=== PATIENT | male | born 1970 | race Two or more races ===

== ENCOUNTER 2024-11-24 08:21 | Day surgery (SDC) | payer OTHER, MEDICAID ==
[2024-11-24] VITALS (8 sets, daily range): BP systolic 97–131; BP diastolic 63–90; PULSE 70–81; RESP 13–16; O2SAT 92–95
[~2024-11-24] VITALS: Ht 167.6 cm; Wt 103.9 kg
[~2024-11-24 08:21] MED LIST: ASPI1TAB20 PO; BUDE1AER4 IN; CHOL400C15 PO; DULA0.5I SC; EMPA1TAB3 PO; EZET10TA22 PO; FAMO-12 PO; FURO1TAB31 PO; INSU100I4 SC; INSU100I70 SC; LOSA-534 PO; METO-159 PO; OMEP20TA PO; ROSU20TA14 PO; TRIA37.586 PO
[2024-11-24] MEDS ORDERED: HEPARIN SODIUM (PORCINE) 5000 UNITS/ML 1ML VIAL ONE ×2 (08:56→12:09)
[2024-11-24] MEDS ORDERED: ANGIOMAX 250 MG VIAL IV ONE (08:56)
[2024-11-24] MEDS ORDERED: methylPREDNISolone SOD SUCC 125 MG/2 ML VL ONE (08:56)
[2024-11-24] MEDS ORDERED: VERAPAMIL 2.5MG/ML INJ 2ML VIAL IV ONE (08:57)
[2024-11-24] MEDS ORDERED: diphenhdrAMINE HCL 50 MG/1 ML VL ONE (08:57)
[2024-11-24] MEDS ORDERED: fentaNYL CITRATE 100 MCG/2 ML VL ONE (08:58)
[2024-11-24] MEDS ORDERED: FAMOTIDINE (10MG/ML) 2ML VL IV ONE (08:58)
[2024-11-24] MEDS ORDERED: LIDOCAINE 2%HCL (LOCAL ANESTH.) INJ 20ML MDV ONE (08:58)
[2024-11-24] MEDS ORDERED: MIDAZOLAM HCL 2MG/2ML 2ml VIAL (1mg/ml) ONE (08:58)
[2024-11-24] MEDS ORDERED: IODIXANOL 320MG/ML 100ML BTL IV ONE ×2 (08:58→12:05)
--- NOTE | 2024-11-24 12:29 | DVHOP2 ---
Operative Report - 2 Report Details Date: 11/24/24 Preop Diagnosis: Cardiomyopathy. CAD. Postop Diagnosis: Mild cardiomyopathy. No CAD. Surgeon: Shaka Mckeon MD Anesthesiologist: Conscious sedation. Anesthesia: Mac, Local (Two of Versed and 50 of fentanyl were given by attending nurse. I supervised the patient throughout the procedure and through the administration of conscious sedation.) Consent: The patient was informed of the risks and benefits of the procedure. These include but are not limited to complications of anesthesia, postoperative infection, incomplete relief of symptoms, recurrence of symptoms, damage to blood vessels, nerves and tendons, deep venous thrombosis, pulmonary embolism and possible need for repeat surgery in the future. Complications: No complications. Estimated Blood Loss: 5 cc. Findings: No CAD. Mild myopathy. Indications for Surgery: Chest pain. Name of Procedure Performed Bilateral cine coronary angiography left ventriculography. Procedure Details Procedure Details: Prior local anesthesia with 2% lidocaine to the right wrist full informed consent obtained patient was prepped and draped in usual fashion followed by placement of a Roney catheter the right and left coronary ostia and also for ventriculography patient tolerated the procedure well there were no complications. Hemodynamics aortic blood pressure was 10/70 end-diastolic pressure was 16. There was no gradient across the aortic valve on pullback coronary anatomy. A RCA is a nondominant vessel it is normal left main is large and normal. The circumflex is large with two marginals free of significant disease. Left anterior descending coronary a large vessel with two diagonals and septals are normal. Ventriculography in the QUINN projection shows an EF of 40% with anterior mild global hypokinesis. Impression Normal left ventricular end-diastolic pressure at rest. Decreased left ventricular ejection fraction. Normal coronary arteries. Condition Good Disposition Home Date of Service: Nov 24, 2024 Billing Provider: SHAKA MCKEON Sr., MD Cardiology Common Codes: 73430-CNQHSEQ INP/OBS CARE (High) Cardiology Procedure Codes: 93099-KHKK HEART CATH W/INTRA INJ SHAKA MCKEON Sr., MD Nov 24, 2024 12:29
== END 2024-11-24 14:30 | disposition home or self-care (01) ==
LOC: CATH 08:21
PROVIDERS: ATTEND Internal Medicine
DX: I25.10 Atherosclerotic heart disease of native coronary artery without angina pectoris (principal); R07.9 Chest pain, unspecified; I42.9 Cardiomyopathy, unspecified; E11.59 Type 2 diabetes mellitus with other circulatory complications; I10 Essential (primary) hypertension; E78.5 Hyperlipidemia, unspecified; Z79.899 Other long term (current) drug therapy; Z79.4 Long term (current) use of insulin; Z98.890 Other specified postprocedural states; Z88.1 Allergy status to other antibiotic agents; Z88.8 Allergy status to other drugs, medicaments and biological substances
CPT/HCPCS: 93458; C1887; C1894; J1644; J2250; J3010; J7030; Q9967; 99152; J3490